=== PATIENT | female | born 1980 | race Hispanic/Latino ===

== ENCOUNTER 2017-01-27 08:43 | Emergency (ER) | payer OTHER ==
--- NOTE | 2017-01-27 09:10 | ED PDOC ---
HPI: SOB/CHF/COPD Time Seen by Provider: 01/27/17 09:03 History Per: Patient Onset/Duration Of Symptoms: Days (3) Quality: Tightness Current Respiratory Medications: See Home Med List Severity: Mild Pain Scale Rating Of: 1 Associated Symptoms: Chest Pain Additional Complaint(s): Difficulty breathing worse over past 3 days. Assoc with chest and back pain worse on inspiration. Denies cough or fever. No leg pain or swelling. Past Medical History Vital Signs: Last Vital Signs Temp 97 F L 01/27/17 09:10 Pulse 58 L 01/27/17 09:10 Resp 16 01/27/17 09:23 BP 107/63 01/27/17 09:10 Pulse Ox 100 01/27/17 09:10 - Medical History PMH: Asthma Denies: Chronic Kidney Disease - Family History Family History: States: Unknown Family Hx - Immunization History Hx Tetanus Toxoid Vaccination: No - Home Medications Home Medications: Ambulatory Orders Medication Instructions Recorded Famotidine [Pepcid] 20 mg PO Q6 PRN #10 tab 01/27/16 traMADol [Ultram] 50 mg PO STAT PRN #7 tab 01/27/16 Pantoprazole [Protonix] 40 mg PO DAILY #20 ect 01/28/16 Dicyclomine [Bentyl] 20 mg PO QID PRN #10 tab 01/31/16 Albuterol HFA [Ventolin HFA 90 2 puff IH Q4H #1 puff 01/27/17 mcg/actuation (8 g)] Methylprednisolone [Medrol Dose 4 mg PO DAILY #21 tab 01/27/17 Pack (21 tabs)] - Allergies Allergies/Adverse Reactions: Allergies Allergy/AdvReac Type Severity Reaction Status Date / Time No Known Allergies Allergy Verified 01/26/16 23:33 Review of Systems Constitutional: Negative for: Fever Cardiovascular: Positive for: Chest Pain Respiratory: Positive for: Shortness of Breath, Pleuritic Pain. Negative for: Cough Musculoskeletal: Positive for: Back Pain Physical Exam - Physical Exam Appears: Positive for: Non-toxic, No Acute Distress Skin: Positive for: Normal Color, Warm, DRY Cardiovascular/Chest: Positive for: Regular Rate, Rhythm, Chest Non Tender Respiratory: Positive for: Decreased Breath Sounds. Negative for: Rhonchi, Wheezing, Respiratory Distress Extremity: Positive for: Normal ROM Neurologic/Psych: Positive for: Alert, Oriented Disposition - Clinical Impression Clinical Impression: Reactive airway disease - Patient ED Disposition Is Patient to be Admitted: No Counseled Patient/Family Regarding: Studies Performed, Diagnosis, Need For Followup, Rx Given - Disposition Referrals: [facility] [Outside] Disposition: Routine/Home Disposition Time: 09:33 Condition: FAIR Prescriptions: Albuterol HFA [Ventolin HFA 90 mcg/actuation (8 g)] 2 puff IH Q4H #1 puff Methylprednisolone [Medrol Dose Pack (21 tabs)] 4 mg PO DAILY #21 tab Instructions: Reactive Airways Disease (ED)
[2017-01-27 09:23] VITALS: BP 107/63; PULSE 58; RESP 16; TEMP 97; O2SAT 100
--- NOTE | 2017-01-27 10:48 | RAD ---
HISTORY: sob COMPARISON: No prior. TECHNIQUE: Chest PA and lateral FINDINGS: LUNGS: No active pulmonary disease. PLEURA: No significant pleural effusion identified. No pneumothorax apparent. CARDIOVASCULAR: Normal. OSSEOUS STRUCTURES: No significant abnormalities. VISUALIZED UPPER ABDOMEN: Normal. OTHER FINDINGS: None. IMPRESSION: No active disease.
--- NOTE | 2017-01-28 09:35 | CARD ---
APPROVED REPORT EKG Measurement Heart [id number] CT [id number] <Conclusion> Sinus bradycardia Otherwise normal ECG
== END 2017-01-27 09:41 | disposition home or self-care (01) ==
LOC: H.ER 08:43
DX: J45.909 Unspecified asthma, uncomplicated (principal)